=== PATIENT | female | born 1980 | race Caucasian/White ===

== ENCOUNTER 2021-02-03 18:47 | Emergency (ER) | payer OTHER ==
[~2021-02-03 18:47] MED LIST: LEVAQUIN750 MG PO
== END 2021-02-03 22:01 | disposition home or self-care (01) ==
LOC: ER1 18:47
DX: U07.1 COVID-19 (principal); Z23 Encounter for immunization; J44.9 Chronic obstructive pulmonary disease, unspecified; Z88.0 Allergy status to penicillin; F17.210 Nicotine dependence, cigarettes, uncomplicated
CPT/HCPCS: 99283; M0243; U0002